=== PATIENT | female | born 1940 | race Caucasian/White ===

== ENCOUNTER → 2018-06-22 | Outpatient (CLI) | payer OTHER, MEDICARE | LOC: RAD 01:27 | DX: Z12.31 Encounter for screening mammogram for malignant neoplasm of breast (principal) ==

== ENCOUNTER → 2019-06-24 | Outpatient (CLI) | payer OTHER, MEDICARE | LOC: NUC 10:17 | DX: Z12.31 Encounter for screening mammogram for malignant neoplasm of breast (principal); M85.89 Other specified disorders of bone density and structure, multiple sites; Z78.0 Asymptomatic menopausal state ==

== ENCOUNTER → 2020-06-25 | Outpatient (CLI) | payer OTHER, MEDICARE | LOC: BC 10:45 | PROVIDERS: ATTEND Family Medicine | DX: Z12.31 Encounter for screening mammogram for malignant neoplasm of breast (principal) ==

== ENCOUNTER → 2021-06-24 | Outpatient (CLI) | payer OTHER, MEDICARE | LOC: BC 10:56 | PROVIDERS: ATTEND Family Medicine | DX: Z12.31 Encounter for screening mammogram for malignant neoplasm of breast (principal); Z13.820 Encounter for screening for osteoporosis; Z78.0 Asymptomatic menopausal state; M85.88 Other specified disorders of bone density and structure, other site ==